=== PATIENT | male | born 1955 | race Caucasian/White ===

== ENCOUNTER 2020-01-27 15:12 | Outpatient (CLI) | payer OTHER, SELFPAY ==
[2020-01-27 16:38] LABS: Prostate Specific Antigen 14.1 ng/mL (< OR = 4.0)
== END 2020-01-27 15:13 | disposition home or self-care (01) ==
LOC: ANHLAB 15:14
PROVIDERS: PCP Internal Medicine; Visit Provider Internal Medicine
DX: R97.20 Elevated prostate specific antigen [PSA] (principal)
CPT/HCPCS: 36415; 84153

== ENCOUNTER 2020-05-30 11:58 | Outpatient (CLI) | payer OTHER, SELFPAY ==
[2020-05-30 13:14] LABS: Prostate Specific Antigen 16.6 ng/mL (< OR = 4.0)
== END 2020-05-30 11:59 | disposition home or self-care (01) ==
LOC: ANHLAB 12:01
PROVIDERS: PCP Internal Medicine
DX: C61 Malignant neoplasm of prostate (principal)
CPT/HCPCS: 36415; 84153

== ENCOUNTER 2020-07-12 08:17 | Outpatient (CLI) | payer OTHER, SELFPAY ==
[2020-07-12 08:44] LABS: Alanine Aminotransferase 24 U/L (4-50); Albumin Level 4.3 g/dL (3.5-5.1); Alkaline Phosphatase 69 U/L (38-126); Anion Gap 4 mmol/L (8-16); Aspartate Amino Transferase 37 U/L (17-59); Bilirubin,Total 0.5 mg/dL (0.2-1.3); Blood Urea Nitrogen 19 mg/dL (9-20); Calcium 9.5 mg/dL (8.4-10.2); Carbon Dioxide 29 mmol/L (22-30); Chloride 105 mmol/L (98-107); Cholesterol 137 mg/dL (0-200); Estimated Glomerular Filt Rate > 60; Glucose 97 mg/dL (75-110); HDL Direct 59 mg/dL; Potassium 5.1 mmol/L (3.4-5.0); Sodium 138 mmol/L (137-145); Triglycerides 66 mg/dL (<150)
[2020-07-12 08:55] LABS: LDL Cholesterol Direct 58 mg/dL
== END 2020-07-12 08:18 | disposition home or self-care (01) ==
PROVIDERS: PCP Internal Medicine; Visit Provider Internal Medicine
DX: E78.5 Hyperlipidemia, unspecified (principal); Z13.6 Encounter for screening for cardiovascular disorders
CPT/HCPCS: 36415; 80053; 80061

== ENCOUNTER 2020-07-17 04:44 | Emergency (ER) | payer OTHER, SELFPAY ==
--- NOTE | ~2020-07-17 | CT_ITS ---
EXAMINATION: CT abdomen pelvis wo con DATE: 07/17/2020 05:47 INDICATION: Left lower quadrant pain TECHNIQUE: Computed tomography (CT) of the abdomen and pelvis was performed without intravenous contr ast. The dose-length product (DLP) was 595.10 mGy-cm. Automated exposure control and iterative recons truction technique were employed. COMPARISON: 01/14/2018 FINDINGS: Minimal dependent atelectasis is present in the lung bases. The heart size is normal. There is a small sliding hiatal hernia. The liver, spleen, pancreas, gallbladder, and adrenal glands are n ormal. Cysts of the kidneys measure up to 2.6 cm on the left. There is a 4 mm stone in the proximal l eft ureter which causes mild hydronephrosis. Nonobstructing stones of the left kidney measure up to 4 mm. There are nonobstructing stones of the right kidney which measure up to 3 mm. There is calcified atherosclerosis of the aorta and many of the other arteries. No pathologically enlarged abdominal or pelvic lymph nodes are identified. There is no free intraperitoneal gas or evidence of bowel obstruc tion. There is severe lumbar spondylosis at L4-5. The appendix is normal. IMPRESSION: 1. 4 mm stone proximal left ureter causing mild hydronephrosis. 2. Bilateral nephrolithiasis. Reviewed, dictated and finalized at location [facility].
[2020-07-17 04:49] VITALS: PULSE 43; RESP 18; TEMP 36.8; O2SAT 99
--- NOTE | 2020-07-17 04:55 | ED.GENADULT ---
HPI - General Adult General Chief complaint: Urogenital-Male Stated complaint: kidney stones Time Seen by Provider: 07/17/20 04:49 History of Present Illness HPI narrative: Patient 65-year-old gentleman who presents the emergency department with chief complaint of left lower quadrant pain. The patient reports approximately 4 AM he woke up and started having pain in his left lower quadrant. Patient reports he got diaphoretic started having sharp pain in that location and states it feels just like whenever he has had the kidney stones before in the past. Patient reports he had some nausea denies flank pain at this time. The patient reports not improved by anything or is worsened by anything Related Data Home Medications Medication Instructions Recorded Confirmed tamsulosin 0.4 mg capsule 0.4 mg PO DAILY 02/02/20 02/02/20 Allergies Allergy/AdvReac Type Severity Reaction Status Date / Time No Known Allergies Allergy Unknown Verified 03/23/19 11:11 Review of Systems Review of Systems: Narrative: A 10 system review of systems was completed on the patient and is negative except for what is stated in the HPI. Nursing and ancillary documentation was reviewed. [facility] Past Medical History Medical History Screening for cardiovascular condition Surgical History Surgical History H/O prostate biopsy Family History Family History Mother Hypertension Social History Social History Smoking status: Current every day smoker Alcohol intake: never Comments History of kidney stones history of prostate cancer Exam Narrative: Exam Narrative: GENERAL: Well-appearing, well-nourished, and in no acute distress. HEAD: Normocephalic, atraumatic. EYES: PERRLA and EOMI. ENT: Nares clear, no rhinorrhea or epistaxis. Mucous membranes moist. NECK: Supple. CHEST: Clear to auscultation. No respiratory distress. HEART: Regular rate and rhythm. No murmur heard. Normal peripheral pulses. ABDOMEN: Soft, mild tenderness to palpation in the left lower quadrant, nondistended, normal active bowel sounds. EXTREMITIES: Normal range of motion. No edema. SKIN: Warm, dry, no rash. NEURO: No focal deficits. Alert and oriented x3. PSYCH: Normal mood and affect. Course Course Emergency Course: Patient CT scan showed evidence of a 4 mm left proximal ureteral calculi Vital Signs Vital signs: Vital Signs Temperature 36.8 C 07/17/20 04:49 Pulse Rate 43 L 07/17/20 04:49 Respiratory Rate 18 07/17/20 04:49 Pulse Oximetry 99 07/17/20 04:49 Temperature 36.8 C 07/17/20 04:49 Pulse Rate 51 L 07/17/20 06:13 Respiratory Rate 18 07/17/20 06:13 Blood Pressure 195/74 H 07/17/20 06:13 Pulse Oximetry 99 07/17/20 06:13 Medical Decision Making Vital Signs Vital Signs: Vital Signs Temperature 36.8 C 07/17/20 04:49 Pulse Rate 43 L 07/17/20 04:49 Respiratory Rate 18 07/17/20 04:49 Pulse Oximetry 99 07/17/20 04:49 Temperature 36.8 C 07/17/20 04:49 Pulse Rate 51 L 07/17/20 06:13 Respiratory Rate 18 07/17/20 06:13 Blood Pressure 195/74 H 07/17/20 06:13 Pulse Oximetry 99 07/17/20 06:13 Lab Data Result diagrams: 07/17/20 05:26 07/17/20 05:26 Labs: Lab Results 07/17/20 07/17/20 07/17/20 Range/Units 05:26 05:26 05:35 WBC 8.7 (4.5-10.0) K/mm3 RBC 4.47 L (4.6-6.20) M/mm3 Hgb 14.1 (14.0-18.0) g/dL Hct 43.7 (42.0-52.0) % MCV 97.8 (80-100) fl MCH 31.5 (26-34) pg MCHC 32.3 (32-36) g/dl RDW 13.2 (11.5-14.5) % Plt Count 248 (150-375) k/mm3 MPV 10.1 (7.4-10.4) fl Immature Gran % (Auto) 0.2 (0-0.5) % Neut % (Auto) 52.5 (45.5-73.1) % Lymph % (Auto) 34.1 (
[2020-07-17 05:00] VITALS: BP 190/101
[2020-07-17] MEDS: MORPHINE SULFATE (*CRX) 4 MG/ML INJ IV PUSH (05:15)
[2020-07-17] MEDS: SODIUM CHLORIDE 0.9% IV 1,000 ML 999 ML IV CONT (05:15)
[2020-07-17] MEDS: ONDANSETRON INJ 4 MG/2 ML VIAL IV PUSH (05:19)
--- NOTE | 2020-07-17 05:30 | PC.NURSE ---
pt states he isnt able to urinate, refused straight cath
[2020-07-17 05:46] LABS: Basophils Absolute Auto 0.1 K/mm3 (0.0-0.1); Basophils Percent Auto 0.7 % (0.2-1.2); Eosinophils Absolute Auto 0.5 K/mm3 (0-0.3); Eosinophils Percent Auto 5.2 % (0-4.4); Hematocrit 43.7 % (42.0-52.0); Hemoglobin 14.1 g/dL (14.0-18.0); Immature Granulocyte Absolute 0.02 K/mm3 (0.00-0.031); Immature Granulocyte Percent A 0.2 % (0-0.5); Lymphocytes Absolute Auto 2.95 K/mm3 (0.9-3.2); Lymphocytes Percent Auto 34.1 % (18.3-44.2); Mean Corpuscular HGB Conc 32.3 g/dl (32-36); Mean Corpuscular Hemoglobin 31.5 pg (26-34); Mean Corpuscular Volume 97.8 fl (80-100); Mean Platelet Volume 10.1 fl (7.4-10.4); Monocytes Absolute Auto 0.6 K/mm3 (0.1-0.6); Monocytes Percent Auto 7.3 % (2.6-8.5); Neutrophils Absolute Auto 4.5 K/mm3 (1.3-6.7); Neutrophils Percent Auto 52.5 % (45.5-73.1); Platelet Count Result 248 k/mm3 (150-375); Red Blood Count 4.47 M/mm3 (4.6-6.20); Red Cell Distribution Width 13.2 % (11.5-14.5); White Blood Count 8.7 K/mm3 (4.5-10.0)
[2020-07-17 05:47] LABS: Alanine Aminotransferase 20 U/L (4-50); Albumin Level 4.3 g/dL (3.5-5.1); Alkaline Phosphatase 61 U/L (38-126); Anion Gap 5 mmol/L (8-16); Aspartate Amino Transferase 27 U/L (17-59); Bilirubin,Total 0.2 mg/dL (0.2-1.3); Blood Urea Nitrogen 15 mg/dL (9-20); Calcium 9.1 mg/dL (8.4-10.2); Carbon Dioxide 32 mmol/L (22-30); Chloride 104 mmol/L (98-107); Estimated CRCL calculation 61 ml/min; Estimated Glomerular Filt Rate > 60; Glucose 116 mg/dL (75-110); Lipase 62 U/L (23-300); Potassium 4.1 mmol/L (3.4-5.0); Sodium 141 mmol/L (137-145)
--- NOTE | 2020-07-17 06:01 | PC.NURSE ---
pt reminded of needed urine sample. pt refused straight cath.
[2020-07-17 06:04] LABS: Lactic Acid Reflex 1.9 mmol/L (0.7-2.1)
[2020-07-17 06:13] VITALS: BP 195/74; PULSE 51; RESP 18; O2SAT 99
[2020-07-17 06:34] VITALS: BP 176/55; PULSE 55; RESP 20; O2SAT 93
[2020-07-17] MEDS: HYDROcodone/acetaminophen (*CRX) 5-325 MG TABLET 1 TAB PO (06:44)
[2020-07-17 06:45] VITALS: BP 176/55; PULSE 59; RESP 18; O2SAT 99
== END 2020-07-17 06:48 | disposition home or self-care (01) ==
PROVIDERS: Emergency Provider Emergency Medicine; PCP Internal Medicine
DX: N13.2 Hydronephrosis with renal and ureteral calculous obstruction (principal); Z87.442 Personal history of urinary calculi; F17.200 Nicotine dependence, unspecified, uncomplicated
CPT/HCPCS: 36415; 74176; 80053; 83605; 83690; 85025; 96361; 96374; 96375; 99284; A9270; J2270; J2405; J7030

== ENCOUNTER 2020-08-19 12:20 | Outpatient (CLI) | payer OTHER, SELFPAY ==
--- NOTE | ~2020-08-19 | US_ITS ---
EXAMINATION: US carotid duplex BI DATE: 08/19/2020 12:54 INDICATION: Left carotid bruit. TECHNIQUE: Grayscale, color Doppler, and pulsed Doppler images of the cervical carotid arteries were obtained. The degree of vessel stenosis is placed in one of the following categories: normal, <50%, 5 0-69%, >=70% but less than near-occlusion, near-occlusion, or total occlusion. Note that percent sten osis relative to normal distal artery lumen diameter is indirectly measured from velocity measurement s as described by Brain, et al. Radiology 2003; 229:340-346. COMPARISON: Ultrasound 08/01/2017 FINDINGS: RIGHT: The right common carotid artery (CCA) peak systolic velocity (PSV) is 117 cm/s. The right internal ca rotid artery (ICA) PSV is 118 cm/s. The right ICA end-diastolic velocity (EDV) is 29 cm/s. The right ICA/CCA PSV ratio is 1.0. Grayscale and color Doppler images yield an estimate of <50% diameter reduc tion from plaque in the ICA. There is antegrade flow in the right vertebral artery. LEFT: The left CCA PSV is 119 cm/s. The left ICA PSV is 95 cm/s. The left ICA EDV is 26 cm/s. The left ICA/ CCA PSV ratio is 0.8. Grayscale and color Doppler images yield an estimate of <50% diameter reduction from plaque in the ICA. There is antegrade flow in the left vertebral artery. IMPRESSION: 1. <50% stenosis in the right internal carotid artery. 2. <50% stenosis in the left internal carotid artery. Reviewed, dictated and finalized at location [facility].
== END 2020-08-19 12:21 | disposition home or self-care (01) ==
PROVIDERS: PCP Internal Medicine; Visit Provider Nurse Practitioner
DX: R09.89 Other specified symptoms and signs involving the circulatory and respiratory systems (principal); I65.23 Occlusion and stenosis of bilateral carotid arteries
CPT/HCPCS: 93880

== ENCOUNTER 2020-08-24 13:56 | Outpatient (CLI) | payer OTHER, SELFPAY ==
[2020-08-24 15:16] LABS: Prostate Specific Antigen 14.5 ng/mL (< OR = 4.0)
== END 2020-08-24 13:57 | disposition home or self-care (01) ==
PROVIDERS: PCP Internal Medicine; Visit Provider Nurse Practitioner
DX: C61 Malignant neoplasm of prostate (principal)
CPT/HCPCS: 36415; 84153

== ENCOUNTER 2021-02-17 12:53 | Outpatient (CLI) | payer OTHER, SELFPAY ==
[2021-02-17 13:40] LABS: Alanine Aminotransferase 33 U/L (4-50); Albumin Level 4.3 g/dL (3.5-5.1); Alkaline Phosphatase 60 U/L (38-126); Anion Gap 3 mmol/L (8-16); Aspartate Amino Transferase 36 U/L (17-59); Bilirubin,Total 0.3 mg/dL (0.2-1.3); Blood Urea Nitrogen 11 mg/dL (9-20); Calcium 9.2 mg/dL (8.4-10.2); Carbon Dioxide 33 mmol/L (22-30); Chloride 104 mmol/L (98-107); Cholesterol 153 mg/dL (0-200); Estimated Glomerular Filt Rate > 60; Glucose 96 mg/dL (65-110); HDL Direct 62 mg/dL; Potassium 5.5 mmol/L (3.4-5.0); Sodium 140 mmol/L (137-145); Triglycerides 139 mg/dL (<150)
[2021-02-17 13:51] LABS: LDL Cholesterol Direct 60 mg/dL
== END 2021-02-17 12:54 | disposition home or self-care (01) ==
LOC: ANHLAB 12:54
PROVIDERS: PCP Internal Medicine; Visit Provider Nurse Practitioner
DX: E78.5 Hyperlipidemia, unspecified (principal)
CPT/HCPCS: 36415; 80053; 80061

== ENCOUNTER 2021-04-20 10:02 | Outpatient (CLI) | payer OTHER, SELFPAY ==
[2021-04-20 11:28] LABS: Prostate Specific Antigen < 0.1 ng/mL (< OR = 4.0)
== END 2021-04-20 10:03 | disposition home or self-care (01) ==
LOC: ANHLAB 10:06
PROVIDERS: PCP Internal Medicine
DX: C61 Malignant neoplasm of prostate (principal)
CPT/HCPCS: 36415; 84153

== ENCOUNTER 2021-07-03 19:38 | Emergency (ER) | payer MEDICARE, MEDICAID, SELFPAY ==
--- NOTE | ~2021-07-03 | CT_ITS ---
EXAMINATION: CT brain wo con DATE: 07/03/2021 20:59 INDICATION: Headache TECHNIQUE: Computed tomography (CT) of the head was performed without intravenous contrast. The mA wa s adjusted according to patient size. Iterative reconstruction technique was employed. Exam dose: 60 5.33 mGy-cm total exam DLP. COMPARISON: None FINDINGS: There are vertebral artery and bilateral carotid siphon internal carotid artery calcificati on. There is nonspecific diminished attenuation of the cerebral white matter, likely due to chronic s mall vessel ischemic changes. No intracranial mass lesion or hemorrhage or cerebrovascular accident. No midline shift or mass effec t. Ventricular size is within normal range. No subdural or epidural hematoma is detected. No orbital mass lesion. Included mastoid air cells and paranasal sinuses are normally developed and aerated. No fracture or bone destruction of the cranial vault. IMPRESSION: Cerebral atherosclerosis and chronic small vessel ischemic changes of the cerebral white matter No acute intracranial finding Reviewed, dictated and finalized at [facility]. Reviewed, dictated and finalized at location [facility].
[2021-07-03 19:44] VITALS: BP 128/60; PULSE 64; RESP 18; TEMP 36.8; O2SAT 100
--- NOTE | 2021-07-03 21:47 | ED.EAR ---
HPI - Ear Problem General Chief complaint: Ear Stated complaint: ear problems Time Seen by Provider: 07/03/21 20:31 Source: RN notes reviewed History of Present Illness HPI Narrative: Patient presents emergency department from home for abnormal sounds left ear. Patient states for the past year as he is heard a dripping sound in his left ear. He describes a sound is a drip, drip drip . He denies any ear pain he denies any headaches fevers or chills he does note that he had rhinorrhea earlier today denies any sore throat cough or shortness of breath Related Data Home Medications Medication Instructions Recorded Confirmed tamsulosin 0.4 mg capsule 0.4 mg PO DAILY 02/02/20 02/21/21 Allergies Allergy/AdvReac Type Severity Reaction Status Date / Time No Known Allergies Allergy Unknown Verified 02/21/21 11:02 Review of Systems Review of Systems: Gen.: Denies fevers or chills ENT: See HPI Respiratory: Denies shortness of breath or cough CV: Denies chest pain or palpitations GI: Denies abdominal pain nausea, emesis or diarrhea Musculoskeletal: Denies back pain or muscle pain Neuro: Denies numbness, tingling, weakness or focal weakness Skin: Denies rash Except as documented, all other systems reviewed and negative PMFSH Past Medical History Medical History Screening for cardiovascular condition Surgical History Surgical History H/O prostate biopsy Family History Family History Mother Hypertension Social History Social History Smoking packs per day: 1.5 Smoking cigarettes per day: 30.0 Years smoked: 40 Smoking pack-years: 60.00 Smoking status: Current every day smoker Tobacco type: cigarettes Alcohol intake: never Substance use: never Substance use type: does not use Exam Narrative: APPEARANCE: No acute distress, nontoxic, resting in bed EYES: EOMI HEENT: Normocephalic, atraumatic, right TM is normal in appearance left TM has no erythema mild effusion bilateral turbinates boggy no erythema exudate posterior pharynx RESPIRATORY: No respiratory distress Clear to auscultation bilaterally with no rhonchi wheezing or rales. CARDIOVASCULAR: Regular rate and rhythm without murmurs rubs or gallops. ABDOMINAL: Soft, nontender, nondistended, no rebound or guarding MUSCULOSKELETAl: Moves all extremities. No clubbing, cyanosis or edema. NEURO: Awake and alert x 4. Following commands, speech normal, no focal deficits SKIN:: Warm, dry. No rashes lesions or abrasions PSYCHIATRIC: Normal affect/mood, Course Course Emergency Course: Discussed with patient results of workup and diagnosis. Discussed need for follow-up with primary care, proper use of medication, and reasons to return to the emergency department. Patient understands and agrees to current treatment plan Vital Signs Vital signs: Vital Signs Temperature 98.2 F 07/03/21 19:44 Pulse Rate 64 07/03/21 19:44 Respiratory Rate 18 07/03/21 19:44 Blood Pressure 128/60 07/03/21 19:44 Pulse Oximetry 100 07/03/21 19:44 Temperature 98.2 F 07/03/21 19:44 Pulse Rate 64 07/03/21 19:44 Respiratory Rate 18 07/03/21 19:44 Blood Pressure 128/60 07/03/21 19:44 Pulse Oximetry 100 07/03/21 19:44 Medical Decision Making MDM Narrative Medical decision making narrative: Patient with dripping sound in left ear blood pressure is within normal limits small effusion suspect secondary to effusion will start on Flonase and guaifenesin with follow-up as ENT Vital Signs Vital Signs: Vital Signs Temperature 98.2 F 07/03/21 19:44 Pulse Rate 64 07/03/21 19:44 Respiratory Rate 18 07/03/21 19:44 Blood Pressure 128/60 07/03/21 19:44 Pulse Oximetry 100 07/03/21 19:44 Temperature 98.2 F 07/03/21
[2021-07-03 22:05] VITALS: BP 146/86; PULSE 78; RESP 16; O2SAT 98
== END 2021-07-03 22:06 | disposition home or self-care (01) ==
PROVIDERS: Emergency Provider Emergency Medicine; PCP Internal Medicine
DX: H93.8X2 Other specified disorders of left ear (principal); F17.210 Nicotine dependence, cigarettes, uncomplicated; I67.2 Cerebral atherosclerosis
CPT/HCPCS: 70450; 99283; 99284

== ENCOUNTER 2021-12-01 10:12 | Emergency (ER) | payer MEDICARE, SELFPAY ==
--- NOTE | 2021-12-01 10:19 | ED.URI ---
HPI - URI/Sore Throat General Chief Complaint: Upper Respiratory Infection Stated Complaint: Congestion Time Seen by Provider: 12/01/21 10:28 Source: patient and RN notes reviewed Mode of arrival: ambulatory Limitations: no limitations History of Present Illness HPI Narrative: 66-year-old male presents with concern for nasal congestion, productive cough, shortness of breath that started on Saturday. He reports he is a smoker. He reports feeling raw at the back of his nose. He denies any known sick contacts. He is vaccinated for COVID. He denies chest pain, sweats. He denies any iios-ewj-wchfnaw medications MD elicited complaint: cough and nasal congestion Related Data Home Medications Medication Instructions Recorded Confirmed tamsulosin 0.4 mg capsule 0.4 mg PO DAILY 02/02/20 08/31/21 Allergies Allergy/AdvReac Type Severity Reaction Status Date / Time No Known Allergies Allergy Unknown Verified 12/01/21 10:18 Review of Systems Review of Systems: CONSTITUTIONAL: Reports malaise. Denies chills, sweats, or fever. EYES: Denies visual changes, redness, or discharge. ENT: Reports rhinorrhea, congestion. Denies sinus pain, otalgia and sore throat. CARDIOVASCULAR: Denies chest pain, palpitations, or edema. RESPIRATORY: Reports productive cough. Reports occasional dyspnea. GASTROINTESTINAL: Denies abdominal pain, nausea, vomiting, diarrhea SKIN: Denies rash or itching. MUSCULOSKELETAL: Denies myalgia. NEUROLOGIC: Denies headache. All systems reviewed & are unremarkable except as noted in HPI and below PMFSH Past Medical History Medical History Screening for cardiovascular condition Surgical History Surgical History H/O prostate biopsy Family History Family History Mother Hypertension Social History Social History Smoking packs per day: 1.5 Smoking cigarettes per day: 30.0 Years smoked: 40 Smoking pack-years: 60.00 Smoking status: Current every day smoker Tobacco type: cigarettes Alcohol intake: never Substance use: never Substance use type: does not use Comments At time of signature, agree with nursing past medical, surgical, social and family history. There is no relevant family history pertinent to the presenting complaint Exam Narrative: GENERAL: Nontoxic-appearing and in no acute distress. HEAD: Normocephalic EYES: PERRLA, conjunctivae clear ENT: Nares clear, clear discharge. Mucous membranes moist. TM pearly johnston with dull light reflex bilaterally; no tragal tenderness. Oropharynx not erythematous without lesions. Tonsils not enlarged and without exudate, no drooling, no hoarseness, no trismus, uvula midline. NECK: Supple. No lymphadenopathy CHEST: Scattered wheeze, otherwise clear to auscultation, breath sounds equal. No rhonchi, rales, or stridor. No respiratory distress, speaks in full sentences. HEART: Regular rate and rhythm. No murmur heard. SKIN: Warm, dry, no rash. NEURO: Alert and oriented x3. PSYCH: Normal mood and affect Course Course Emergency Course: Patient is aware of diagnosis, understands and agrees to treatment plan. Anticipatory guidance given. Patient agrees to follow-up as directed and is aware of reasons to seek care at the emergency department. Portions of this record may have been created with voice recognition software Level of Care: Express Care Visit Vital Signs Vital signs: Reviewed. MDM - URI/Sore Throat MDM Narrative Medical decision making narrative: Differential diagnosis considered: Bowden virus, strep pharyngitis, allergic rhinitis, upper respiratory tract infection, sinusitis, rhinosinusitis, nasopharyngitis. viral pharyngitis, otitis media, otitis externa, pneumonia, bronchitis, viral cough syndrome, viral syndrome, and
[2021-12-01 10:21] VITALS: BP 172/70; PULSE 58; RESP 16; TEMP 35.9; O2SAT 100
== END 2021-12-01 10:39 | disposition home or self-care (01) ==
PROVIDERS: Emergency Provider Nurse Practitioner; PCP Internal Medicine
DX: J06.9 Acute upper respiratory infection, unspecified (principal); R05.9 Cough, unspecified; F17.210 Nicotine dependence, cigarettes, uncomplicated
CPT/HCPCS: 99213; G0463

== ENCOUNTER 2021-12-03 12:50 | Emergency (ER) | payer MEDICARE, SELFPAY ==
--- NOTE | 2021-12-03 12:56 | ED.URI ---
HPI - URI/Sore Throat General Chief Complaint: Upper Respiratory Infection Stated Complaint: Covid test Time Seen by Provider: 12/03/21 12:56 Source: patient Mode of arrival: ambulatory Limitations: no limitations History of Present Illness HPI Narrative: Mr. Hurtado is a 66-year-old male patient presenting to the clinic today with complaints of an upper respiratory infection. He reports that he was seen 2 days ago and given prescription for azithromycin, prednisone, and a butyryl inhaler. He reports his daughter just tested positive for COVID and he is concerned that he has had COVID as well. Symptoms of been ongoing for over 1 week. He reports he has had some fever and chills as well MD elicited complaint: sore throat and nasal congestion Related Data Home Medications Medication Instructions Recorded Confirmed tamsulosin 0.4 mg capsule 0.4 mg PO DAILY 02/02/20 08/31/21 Allergies Allergy/AdvReac Type Severity Reaction Status Date / Time No Known Allergies Allergy Unknown Verified 12/01/21 10:18 Review of Systems Review of Systems: Pertinent positives per HPI. Patient denies any rash, headache, visual changes, dizziness, chest pain, palpitations, nausea, vomiting, diarrhea, constipation, abdominal pain, or any urinary issues. PMFSH Past Medical History Medical History Screening for cardiovascular condition Surgical History Surgical History H/O prostate biopsy Family History Family History Mother Hypertension Social History Social History Smoking packs per day: 1.5 Smoking cigarettes per day: 30.0 Years smoked: 40 Smoking pack-years: 60.00 Smoking status: Current every day smoker Tobacco type: cigarettes Alcohol intake: never Substance use: never Substance use type: does not use Comments At the time of my signature, I reviewed and agree with the nursing past medical, surgical, social, and family history. There is no relevant family history pertinent to the patient complaint. Exam Narrative: General: Well-developed, well nourished, in no apparent distress Head: Normocephalic, atraumatic Eyes: Pupils equally round and reactive to light bilaterally, EOM intact, sclera and conjunctive clear, no discharge, lids normal Ears: TMs intact and clear, ear canals clear, no drainage, grossly hearing normal. Nose: Nares patent, no discharge, no inflammation, no sinus tenderness. Mouth: Oral pharynx without lesions or masses, good dentition, MMM. Neck: Supple, trachea midline, no enlargement of anterior or posterior cervical nodes, no thyroid masses or goiter palpable. Cardio: Regular rate and rhythm, s1 and s2 normal, no murmur appreciated. Resp: Lung sounds diminished in the bases otherwise clear, no rhonchi, rales, wheezing or rubs Course Course Emergency Course: Portions of this record may have been created with voice recognition software. Level of Care: Express Care Visit Vital Signs Vital signs: Vital Signs Temperature 36.4 C L 12/03/21 12:59 Pulse Rate 66 12/03/21 12:59 Respiratory Rate 16 12/03/21 12:59 Blood Pressure 154/66 H 12/03/21 12:59 Pulse Oximetry 100 12/03/21 12:59 Oxygen Delivery Room Air 12/03/21 12:59 Temperature 36.4 C L 12/03/21 12:59 Pulse Rate 66 12/03/21 12:59 Respiratory Rate 16 12/03/21 12:59 Blood Pressure 154/66 H 12/03/21 12:59 Pulse Oximetry 100 12/03/21 12:59 Oxygen Delivery Room Air 12/03/21 12:59 Vital signs reviewed MDM - URI/Sore Throat MDM Narrative Medical decision making narrative: At the time of visit patient is resting comfortably on the exam table. Patient is wanting COVID tested. Symptoms have been going on for a week. I suspect the patient has acu
[2021-12-03 12:59] VITALS: BP 154/66; PULSE 66; RESP 16; TEMP 36.4; O2SAT 100
== END 2021-12-03 13:39 | disposition home or self-care (01) ==
PROVIDERS: Emergency Provider Nurse Practitioner Family; PCP Internal Medicine
DX: J40 Bronchitis, not specified as acute or chronic (principal); Z20.822 Contact with and (suspected) exposure to COVID-19; F17.210 Nicotine dependence, cigarettes, uncomplicated
CPT/HCPCS: 87426; 99213; C9803; G0463

== ENCOUNTER 2021-12-08 13:21 | Outpatient (CLI) | payer MEDICARE, SELFPAY ==
[2021-12-08 14:01] LABS: Alanine Aminotransferase 15 U/L (6-50); Albumin Level 4.2 g/dL (3.5-5.1); Alkaline Phosphatase 58 U/L (38-126); Anion Gap 5 mmol/L (8-16); Aspartate Amino Transferase 21 U/L (17-59); Bilirubin,Total 0.3 mg/dL (0.2-1.3); Blood Urea Nitrogen 16 mg/dL (9-20); Carbon Dioxide 33 mmol/L (22-30); Chloride 102 mmol/L (98-107); Cholesterol 107 mg/dL (0-200); Estimated Glomerular Filt Rate > 60; Glucose 107 mg/dL (65-110); HDL Direct 50 mg/dL; Potassium 5.4 mmol/L (3.4-5.0); Sodium 140 mmol/L (137-145); Triglycerides 74 mg/dL (<150)
[2021-12-08 14:12] LABS: LDL Cholesterol Direct 35 mg/dL
[2021-12-08 14:32] LABS: Prostate Specific Antigen < 0.1 ng/mL (< OR = 4.0)
== END 2021-12-08 13:22 | disposition home or self-care (01) ==
PROVIDERS: PCP Internal Medicine; Visit Provider Nurse Practitioner
DX: E78.5 Hyperlipidemia, unspecified (principal); C61 Malignant neoplasm of prostate
CPT/HCPCS: 36415; 80053; 80061; 84153

== ENCOUNTER 2022-03-30 00:49 | Day surgery (SDC) | payer MEDICARE, SELFPAY ==
[2022-03-22 10:02] VITALS: BMI 25.4
[2022-03-30 06:12] VITALS: BP 130/67; PULSE 56; RESP 18; TEMP 35.9; O2SAT 99; BMI 24.5
[2022-03-30] MEDS: LACTATED RINGERS 1,000 ML 150 ML IV CONT (06:34)
--- NOTE | 2022-03-30 07:13 | P.PNAN_ITS ---
Anes - Initial Pre Proc Eval Procedure: Operation Date: 03/30/22 07:30 Proposed Procedures p Screening Colonoscopy - Hung Ferguson MD Date/Time: 03/30/22 07:13 Surgeon: Hung Ferguson MD Pre Op Diagnosis: Hx of Colon polyps Patient Data Age: 66 Gender: M Height: 1.83 m Weight: 82.1 kg Last Vital Signs Temp 96.7 F L 03/30/22 06:12 Pulse 56 L 03/30/22 06:12 Resp 18 03/30/22 06:12 BP 130/67 03/30/22 06:12 Pulse Ox 99 03/30/22 06:12 O2 Del Method Room Air 03/30/22 06:12 Allergies Allergy/AdvReac Type Severity Reaction Status Date / Time No Known Allergies Allergy Unknown Verified 03/30/22 06:19 Home Medications Medication Instructions Recorded Confirmed Type tamsulosin 0.4 mg capsule 0.4 mg PO DAILY 02/02/20 03/30/22 History inhalat.spacing dev,large mask #1 ea 12/01/21 03/30/22 Rx (BreatheRite Spacer and Mask, Adult) atorvastatin 40 mg tablet See Rx Instructions .Route 01/08/22 03/30/22 Rx .COMPLEX #90 tabs albuterol sulfate 90 mcg/actuation 2 puff inhalation QID PRN 03/09/22 03/30/22 Rx aerosol inhaler shortness of breath or wheezing #8.5 grams fluticasone propionate 50 1 spray intranasal DAILY #16 grams 03/09/22 03/30/22 Rx mcg/actuation nasal spray,suspension (Flonase Allergy Relief) alprazolam 0.5 mg tablet (Xanax) 0.5 mg PO TID PRN anxiety #60 tabs 03/10/22 03/30/22 Rx Patient hx anesthesia problems: none Family hx anesthesia problems: none Results Review: All pre-operative results and documents have been reviewed as part of the pre- operative evaluation. [facility] Past Medical History Medical History (Updated 12/19/21 @ 06:47 by Romel Chakraborty DO) Screening for cardiovascular condition Surgical History Surgical History H/O prostate biopsy Family History Family History Mother Hypertension Social History Social History Smoking packs per day: 1.5 Smoking cigarettes per day: 30.0 Years smoked: 40 Smoking pack-years: 60.00 Smoking status: Current every day smoker Tobacco type: cigarettes Alcohol intake: never Substance use: current Substance use type: marijuana Other substance usage details: Medical Card Living arrangements: with family Spiritual care concerns: No Anes - Eval Final PreProcedure Day of Procedure 03/30/22 07:13 Patient weight: normal Heart: regular rate and rhythm Lungs: clear to auscultation Airway: Mallampati scale class II Neurological: alert and oriented Last oral intake: >/= 8 hours ASA classification: III Emergent: no Anesthetic plan: proceed Anesthesia type and monitoring: general GIVS and standard monitoring Results Review: All pre-operative results and documents have been reviewed as part of the pre- operative evaluation. Informed Consent: The patient's anesthetic plan and its attendant risks and benefits were discussed with the patient/family/POA. Questions were solicited and answers provided to the satisfaction of the patient/family/POA.
--- NOTE | 2022-03-30 07:33 | PM.HPGS ---
History of Present Illness History of Present Illness Consent: Risks, benefits, and alternatives have been discussed and questions answered. Patient agrees to proceed with procedure. Chief complaint: Hx of Colon polyps Narrative: Sundeep Hurtado is a 66 year old male with colon polyps 3 years ago Review of Systems Constitutional: Constitutional: Denies headache(s) and Denies weakness Eyes: Eyes: Denies blurry vision ENT: Reports Normal hearing present, Denies headache(s) and Denies neck pain Cardiovascular: Cardiovascular: Denies chest pain and Denies dyspnea Respiratory: Respiratory: Denies dyspnea Gastrointestinal: Gastrointestinal: Reports no additional gastrointestinal complaints Genitourinary: Genitourinary: Denies dysuria Musculoskeletal: Musculoskeletal: Denies neck pain Integumentary/Breasts: Skin/Breast: Denies dry skin Neurologic: Reports Normal hearing present, Denies headache(s) and Denies weakness Psychiatric: Psychiatric: Denies anxiety Endocrine: Endocrine: Denies change in body appearance Hematologic/Lymphatic: Hematologic/Lymphatic: Denies easy bleeding Allergic/Immunologic: Allergic/Immunologic: Denies urticaria PMFSH Past Medical History Medical History (Updated 03/30/22 @ 07:33 by Hung Ferguson MD) Colon polyp Screening for cardiovascular condition Surgical History Surgical History H/O prostate biopsy Family History Family History Mother Hypertension Social History Social History Smoking packs per day: 1.5 Smoking cigarettes per day: 30.0 Years smoked: 40 Smoking pack-years: 60.00 Smoking status: Current every day smoker Tobacco type: cigarettes Alcohol intake: never Substance use: current Substance use type: marijuana Other substance usage details: Medical Card Living arrangements: with family Spiritual care concerns: No Meds Home Medications and Allergies Home Medications Medication Instructions Recorded Confirmed Type tamsulosin 0.4 mg capsule 0.4 mg PO DAILY 02/02/20 03/30/22 History inhalat.spacing dev,large mask #1 ea 12/01/21 03/30/22 Rx (BreatheRite Spacer and Mask, Adult) atorvastatin 40 mg tablet See Rx Instructions .Route 01/08/22 03/30/22 Rx .COMPLEX #90 tabs albuterol sulfate 90 mcg/actuation 2 puff inhalation QID PRN 03/09/22 03/30/22 Rx aerosol inhaler shortness of breath or wheezing #8.5 grams fluticasone propionate 50 1 spray intranasal DAILY #16 grams 03/09/22 03/30/22 Rx mcg/actuation nasal spray,suspension (Flonase Allergy Relief) alprazolam 0.5 mg tablet (Xanax) 0.5 mg PO TID PRN anxiety #60 tabs 03/10/22 03/30/22 Rx Allergies Allergy/AdvReac Type Severity Reaction Status Date / Time No Known Allergies Allergy Unknown Verified 03/30/22 06:19 Vital Signs Vital Signs - 24 hr 03/30/22 06:12 Temperature 96.7 F L Pulse Rate 56 L Respiratory Rate 18 Blood Pressure 130/67 Pulse Oximetry 99 Oxygen Delivery Room Air Exam Const: General: comfortable and no acute distress HENMT: Face/Nose/Sinus: Normal nares present Eyes: General: appearance normal, both eyes and all related structures Neck: Neck: no JVD Resp: Auscultation: clear to auscultation bilaterally Cardio: Rate: regular rate Rhythm: regular rhythm GI: Inspection: non-distended GI Palp: Yes Soft to palpation Skin: General skin exam: normal color Neuro: General: gait normal Speech: normal speech Extrem: General: normal to inspection Psych: Mental Status: mental status grossly normal Assessment and Plan Assessment and plan (1) Colon polyp: Code(s): K63.5 - Polyp of colon Status: Acute Assessment and Plan: colonoscopy
[2022-03-30 07:53] VITALS: BP 98/52; PULSE 57; RESP 16; O2SAT 99
[2022-03-30 08:03] VITALS: BP 125/69; PULSE 58; RESP 19; O2SAT 100
[2022-03-30 08:13] VITALS: BP 153/83; PULSE 56; RESP 20; O2SAT 100
== END 2022-03-30 08:19 | disposition home or self-care (01) ==
PROVIDERS: PCP Internal Medicine; Visit Provider Internal Medicine Gastroenterology
PROC: 0DJD8ZZ Inspection of Lower Intestinal Tract, Via Natural or Artificial Opening Endoscopic (ICD-10-PCS; CPT 45378; principal; 2022-03-30 07:30)
DX: Z12.11 Encounter for screening for malignant neoplasm of colon (principal); D12.2 Benign neoplasm of ascending colon; D12.4 Benign neoplasm of descending colon; K64.8 Other hemorrhoids; K57.30 Diverticulosis of large intestine without perforation or abscess without bleeding; F17.210 Nicotine dependence, cigarettes, uncomplicated
CPT/HCPCS: 45385; 88305; J2704; J7120

== ENCOUNTER 2022-04-18 07:50 | Outpatient (CLI) | payer MEDICARE, MEDICAID, SELFPAY ==
--- NOTE | 2022-04-18 | ECHO_ITS ---
Patient Info Name: Sundeep Hurtado Age: 66 years : 1955 Gender: Male Ht: 72 in Wt: 176 lbs BSA: 2.02 m2 HR: 62 bpm BP: 131 / 64 mmHg Heart Rhythm: Sinus Rhythm, Bradycardia Exam Date: 04/18/2022 8:29 AM Exam Location: [facility] Patient Status: Outpatient Admit Date: 04/18/2022 Staff Ordering Physician: Marcelino Hope MD Paint Tester: Ilan Allen, MESERET, RT Attending Provider: Marcelino Hope MD Referring Physician: Herminia MULLER; Exam Type: CA echo doppler color flow Study Info Indications R01.1 - Cardiac murmur, unspecified Complete two-dimensional, color flow and Doppler transthoracic echocardiogram is performed. Strain analysis performed. Summary 1. Complete two-dimensional, color flow and Doppler transthoracic echocardiogram is performed. 2. Left ventricular systolic function is normal, estimated at 60-65%. 3. There is mildly increased left ventricular wall thickness. 4. Right ventricular systolic function is normal. 5. The aortic valve is not well visualized. 6. There is moderate to severe aortic valve stenosis with a peak velocity of 355 cm/s, mean gradient of 27 mmHg, and aortic valve area of 0.9 cm2. 7. There is mild aortic valve regurgitation. 8. There is severe aortic valve calcification. 9. The mitral valve annulus is mildly calcified. 10. The aortic root size at the sinus of Valsalva is mildly dilated. Left Ventricle Left ventricular chamber dimension is normal. Left ventricular systolic function is normal, estimated at 60-65%. There is mildly increased left ventricular wall thickness. Global longitudinal strain is abnormal at -19 %. Right Ventricle Right ventricular chamber dimension is normal. Right ventricular systolic function is normal. Left Atria Left atrial chamber dimension is normal. Right Atria Right atrial chamber dimension is normal. Atrial Septum Intact interatrial septum visualized by color flow imaging. Aortic Valve The aortic valve is not well visualized. There is moderate to severe aortic valve stenosis with a peak velocity of 355 cm/s, mean gradient of 27 mmHg, and aortic valve area of 0.9 cm2. There is mild aortic valve regurgitation. There is severe aortic valve calcification. Mitral Valve There is no mitral valve stenosis. There is trace mitral valve regurgitation. The mitral valve annulus is mildly calcified. Tricuspid Valve There is trace tricuspid valve regurgitation. Pericardium/Pleural There is no pericardial effusion. Inferior Vena Cava Normal inferior vena cava with >50% collapse upon inspiration consistent with normal right atrial pressure. Aorta The aortic root size at the sinus of Valsalva is mildly dilated. Left Ventricular Outflow Tract Name Value Normal LVOT 2D LVOT Diameter 2.0 cm LVOT Doppler LVOT Peak Gradient 3 mmHg LVOT Mean Gradient 1 mmHg LVOT VTI 23 cm LVOT VTI/AV VTI Ratio 0.3 LVOT Stroke Volume 75 ml LVOT CO
[2022-04-18 10:31] LABS: Prostate Specific Antigen 0.3 ng/mL (< OR = 4.0)
== END 2022-04-18 07:51 | disposition home or self-care (01) ==
PROVIDERS: Internal Medicine; PCP Internal Medicine; Visit Provider Internal Medicine
DX: R01.1 Cardiac murmur, unspecified (principal); C61 Malignant neoplasm of prostate
CPT/HCPCS: 36415; 84153; 93306

== ENCOUNTER 2022-10-08 15:23 | Outpatient (CLI) | payer MEDICARE, MEDICAID, SELFPAY ==
[2022-10-08 15:43] LABS: Basophils Percent Auto 0.6 % (0.2-1.2); Eosinophils Absolute Auto 0.2 K/mm3 (0-0.3); Eosinophils Percent Auto 2.8 % (0-4.4); Hematocrit 38.7 % (42.0-52.0); Hemoglobin 13.7 g/dL (14.0-18.0); Immature Granulocyte Absolute 0.03 K/mm3 (0.00-0.031); Immature Granulocyte Percent A 0.4 % (0-0.5); Lymphocytes Absolute Auto 1.43 K/mm3 (0.9-3.2); Lymphocytes Percent Auto 20.9 % (18.3-44.2); Mean Corpuscular HGB Conc 35.4 g/dl (32-36); Mean Corpuscular Hemoglobin 32.7 pg (26-34); Mean Corpuscular Volume 92.4 fl (80-100); Mean Platelet Volume 9.1 fl (7.4-10.4); Monocytes Absolute Auto 0.4 K/mm3 (0.1-0.6); Monocytes Percent Auto 5.7 % (2.6-8.5); Neutrophils Absolute Auto 4.8 K/mm3 (1.3-6.7); Neutrophils Percent Auto 69.6 % (45.5-73.1); Platelet Count Result 238 k/mm3 (150-375); Red Blood Count 4.19 M/mm3 (4.6-6.20); Red Cell Distribution Width 13.2 % (11.5-14.5); White Blood Count 6.8 K/mm3 (4.5-10.0)
[2022-10-08 16:08] LABS: Alanine Aminotransferase 22 U/L (6-50); Albumin Level 4.2 g/dL (3.5-5.1); Alkaline Phosphatase 56 U/L (38-126); Anion Gap 1 mmol/L (8-16); Aspartate Amino Transferase 32 U/L (17-59); Bilirubin,Total 0.4 mg/dL (0.2-1.3); Blood Urea Nitrogen 16 mg/dL (9-20); Calcium 8.6 mg/dL (8.4-10.2); Carbon Dioxide 35 mmol/L (22-30); Chloride 101 mmol/L (98-107); Cholesterol 130 mg/dL (0-200); Estimated Glomerular Filt Rate > 60; Glucose 183 mg/dL (65-110); HDL Direct 56 mg/dL; Potassium 4.5 mmol/L (3.4-5.0); Sodium 137 mmol/L (137-145); Triglycerides 56 mg/dL (<150)
[2022-10-08 16:18] LABS: LDL Cholesterol Direct 62 mg/dL
[2022-10-08 16:38] LABS: Prostate Specific Antigen 0.3 ng/mL (< OR = 4.0)
[2022-10-08 16:52] LABS: Hemoglobin A1C 5.1 % (<5.7)
== END 2022-10-08 15:24 | disposition home or self-care (01) ==
LOC: ANHLAB 15:25
PROVIDERS: PCP Internal Medicine; Visit Provider Nurse Practitioner Family
DX: C61 Malignant neoplasm of prostate (principal); I10 Essential (primary) hypertension; Z86.72 Personal history of thrombophlebitis; E78.5 Hyperlipidemia, unspecified
CPT/HCPCS: 36415; 80053; 80061; 83036; 84153; 85025

== ENCOUNTER 2023-03-27 12:41 | Outpatient (CLI) | payer OTHER, SELFPAY ==
--- NOTE | 2023-03-27 12:48 | ECHO_ITS ---
Patient Info Name: Sundeep Hurtado Age: 67 years : 1955 Gender: Male Ht: 72 in Wt: 185 lbs BSA: 2.07 m2 HR: 78 bpm BP: 116 / 73 mmHg Heart Rhythm: Sinus Rhythm Technical Quality: Fair Exam Date: 03/27/2023 1:03 PM Exam Location: Echo Lab Patient Status: Outpatient Admit Date: 03/27/2023 Staff Ordering Physician: Gerardo Espinal DO Water Quality Technician: Inessa Medel RDCS Attending Provider: Gerardo Espinal DO Referring Physician: Teddy LARA; Exam Type: CA echo doppler color flow Study Info Indications I35.0 - Nonrheumatic aortic (valve) stenosis Complete two-dimensional, color flow and Doppler transthoracic echocardiogram is performed. Summary 1. Complete two-dimensional, color flow and Doppler transthoracic echocardiogram is performed. 2. Left ventricular chamber dimension is normal. 3. Left ventricular systolic function is normal, estimated at >70%. 4. The left ventricular diastolic function is grade I diastolic dysfunction. 5. E/e' 13 is mildly elevated. 6. Left atrial chamber dimension is mildly enlarged. 7. The aortic valve is not well visualized. Cannot determine number of aortic valve leaflets. 8. There is severe aortic valve sclerosis. 9. There is severe aortic valve stenosis with a peak velocity of 484 cm/s, mean gradient of 46 mmHg, and aortic valve area of 1.0 cm2. 10. There is trace aortic valve regurgitation. 11. There is trace mitral valve regurgitation. 12. There is trace tricuspid valve regurgitation. 13. No pulmonary hypertension, estimated pulmonary arterial systolic pressure is 28 mmHg. Left Ventricle E/e' 13 is mildly elevated. Left ventricular chamber dimension is normal. Left ventricular systolic function is normal, estimated at >70%. The left ventricular diastolic function is grade I diastolic dysfunction. Right Ventricle Right ventricular systolic function is normal and with normal TAPSE 2.5 cm. Right ventricular chamber dimension is normal. Left Atria Left atrial chamber dimension is mildly enlarged. Right Atria Right atrial chamber dimension is normal. Aortic Valve The aortic valve is not well visualized. Cannot determine number of aortic valve leaflets. There is severe aortic valve sclerosis. There is severe aortic valve stenosis with a peak velocity of 484 cm/s, mean gradient of 46 mmHg, and aortic valve area of 1.0 cm2. There is trace aortic valve regurgitation. Pulmonic Valve There is no pulmonic regurgitation. Mitral Valve There is no mitral valve stenosis. There is trace mitral valve regurgitation. Tricuspid Valve There is trace tricuspid valve regurgitation. No pulmonary hypertension, estimated pulmonary arterial systolic pressure is 28 mmHg. Pericardium/Pleural There is no pericardial effusion. Inferior Vena Cava Normal inferior vena cava with >50% collapse upon inspiration consistent with normal right atrial pressure, 5 mmHg. Aorta The aortic root size at the sinus of Valsalva is normal. Left Ventricular Outflow Tract Name Value Normal LVOT 2D LVOT Diameter 2.1 cm LVOT Doppler LVOT Peak Gradient 5 mmHg LVOT Mean Gradient 3 mmHg LVOT VTI 27 cm
== END 2023-03-27 12:42 | disposition home or self-care (01) ==
PROVIDERS: PCP Nurse Practitioner Family; Visit Provider Internal Medicine Cardiovascular Disease
DX: I35.0 Nonrheumatic aortic (valve) stenosis (principal); I35.8 Other nonrheumatic aortic valve disorders; I35.1 Nonrheumatic aortic (valve) insufficiency; I34.0 Nonrheumatic mitral (valve) insufficiency; I07.1 Rheumatic tricuspid insufficiency; R93.1 Abnormal findings on diagnostic imaging of heart and coronary circulation
CPT/HCPCS: 93306

== ENCOUNTER 2023-04-24 08:40 | Outpatient (CLI) | payer OTHER, SELFPAY ==
[2023-04-24 10:16] LABS: Prostate Specific Antigen 0.9 ng/mL (< OR = 4.0)
== END 2023-04-24 08:41 | disposition home or self-care (01) ==
PROVIDERS: PCP Nurse Practitioner Family; Visit Provider Nurse Practitioner Family
DX: Z12.5 Encounter for screening for malignant neoplasm of prostate (principal); C61 Malignant neoplasm of prostate
CPT/HCPCS: 36415; 84153; G0103

== ENCOUNTER 2023-08-30 15:35 | Outpatient (CLI) | payer OTHER, SELFPAY ==
[2023-08-30 17:29] LABS: Prostate Specific Antigen 0.9 ng/mL (< OR = 4.0)
[2023-09-02 18:14] LABS: Testosterone Total 417 ng/dL (250-1100)
== END 2023-08-30 15:36 | disposition home or self-care (01) ==
PROVIDERS: PCP Nurse Practitioner Family
DX: C61 Malignant neoplasm of prostate (principal)
CPT/HCPCS: 36415; 84153; 84403

== ENCOUNTER 2024-03-23 10:26 | Outpatient (CLI) | payer MEDICARE, SELFPAY ==
[2024-03-23 10:48] LABS: Basophils Absolute Auto 0.1 K/mm3 (0.0-0.1); Basophils Percent Auto 0.9 % (0.2-1.2); Eosinophils Absolute Auto 0.3 K/mm3 (0-0.3); Eosinophils Percent Auto 4.6 % (0-4.4); Hematocrit 35.5 % (42.0-52.0); Hemoglobin 11.6 g/dL (14.0-18.0); Immature Granulocyte Absolute 0.01 K/mm3 (0.00-0.031); Immature Granulocyte Percent A 0.2 % (0-0.5); Lymphocytes Absolute Auto 1.15 K/mm3 (0.9-3.2); Lymphocytes Percent Auto 19.8 % (18.3-44.2); Mean Corpuscular HGB Conc 32.7 g/dl (32-36); Mean Corpuscular Hemoglobin 32.6 pg (26-34); Mean Corpuscular Volume 99.7 fl (80-100); Mean Platelet Volume 9.6 fl (7.4-10.4); Monocytes Absolute Auto 0.6 K/mm3 (0.1-0.6); Monocytes Percent Auto 10.8 % (2.6-8.5); Neutrophils Absolute Auto 3.7 K/mm3 (1.3-6.7); Neutrophils Percent Auto 63.7 % (45.5-73.1); Platelet Count Result 224 k/mm3 (150-375); Red Blood Count 3.56 M/mm3 (4.6-6.20); Red Cell Distribution Width 13.4 % (11.5-14.5); White Blood Count 5.8 K/mm3 (4.5-10.0)
[2024-03-23 11:01] LABS: Alanine Aminotransferase 20 U/L (6-50); Albumin Level 4.1 g/dL (3.5-5.1); Alkaline Phosphatase 68 U/L (38-126); Anion Gap 2 mmol/L (4-12); Aspartate Amino Transferase 25 U/L (17-59); Bilirubin,Total 0.5 mg/dL (0.2-1.3); Blood Urea Nitrogen 11 mg/dL (9-20); Calcium 8.8 mg/dL (8.4-10.2); Carbon Dioxide 31 mmol/L (22-30); Chloride 105 mmol/L (98-107); Cholesterol 183 mg/dL (0-200); Estimated Glomerular Filt Rate > 60; Glucose 104 mg/dL (65-110); HDL Direct 53 mg/dL; Potassium 4.1 mmol/L (3.4-5.0); Sodium 138 mmol/L (137-145); Triglycerides 73 mg/dL (<150)
[2024-03-23 11:13] LABS: LDL Cholesterol Direct 95 mg/dL
[2024-03-23 11:29] LABS: Prostate Specific Antigen 0.2 ng/mL (< OR = 4.0)
== END 2024-03-23 10:27 | disposition home or self-care (01) ==
LOC: ANHLAB 10:29
PROVIDERS: PCP Nurse Practitioner Family; Visit Provider Nurse Practitioner Family
DX: C61 Malignant neoplasm of prostate (principal); E78.5 Hyperlipidemia, unspecified; F41.9 Anxiety disorder, unspecified; R01.1 Cardiac murmur, unspecified; R97.20 Elevated prostate specific antigen [PSA]; Z00.00 Encounter for general adult medical examination without abnormal findings; Z72.0 Tobacco use
CPT/HCPCS: 36415; 80053; 80061; 84153; 85025

== ENCOUNTER 2024-04-02 12:41 | Outpatient (CLI) | payer MEDICARE, MEDICAID, SELFPAY ==
--- NOTE | ~2024-04-02 | CT_ITS ---
EXAMINATION:CT lung screening DATE: 04/02/2024 13:12 INDICATION: Personal history of nicotine dependence. Current smoker with 75 pack year history. TECHNIQUE: Computed tomography (CT) of the chest was performed without intravenous contrast. Automate d exposure control and iterative reconstruction technique were employed. The dose-length product (DLP ) was 129.89 mGy-cm. COMPARISON: Chest CT 07/28/2015 FINDINGS: There is mild emphysema. The lungs demonstrate mild atelectasis. No pleural effusion. The h eart size is normal. There are coronary artery calcifications. There are calcifications of the aortic valve. No pericardial effusion. There are cysts in the kidneys measuring up to 17 mm on the right. T here is mild thoracic spondylosis. IMPRESSION: 1. Lung-RADS category 1: Negative. Continue annual screening with noncontrast low-dose chest CT in 12 months. Reviewed, dictated and finalized at location A. RER'S AIDE IMPRESSION: 1. Lung-RADS category 1: Negative. Continue annual screening with noncontrast l ow-dose chest CT in 12 months.
--- NOTE | 2024-04-02 13:19 | ECHO_ITS ---
Patient Info Name: Sundeep Hurtado Age: 68 years : 1955 Gender: Male Ht: 72 in Wt: 197 lbs BSA: 2.14 m2 HR: 57 bpm BP: 147 / 77 mmHg Technical Quality: Good Exam Date: 04/02/2024 1:26 PM Exam Location: Echo Lab Patient Status: Outpatient Admit Date: 04/02/2024 Staff Ordering Physician: Gerardo Espinal DO Email Marketing Coordinator: Alvarado Fox RDCS Attending Provider: Gerardo Espinal DO Referring Physician: Teddy LARA; Exam Type: CA echo dop color flow w con Study Info Indications - NONRHEUMATIC AORTIC STENOSIS Complete two-dimensional, color flow and Doppler transthoracic echocardiogram is performed. Summary 1. Complete two-dimensional, color flow and Doppler transthoracic echocardiogram is performed. 2. Left ventricular chamber dimension is normal. 3. Left ventricular systolic function is normal, estimated at 65-70%. 4. There is moderate concentric increased left ventricular wall thickness. 5. The left ventricular diastolic function is abnormal. 6. E/e' 19 is elevated. 7. Left atrial chamber dimension is moderately enlarged. 8. There is severe aortic valve sclerosis. 9. There is severe aortic valve stenosis with a peak velocity of 462.34 cm/s, mean gradient of 54 mmHg, and aortic valve area of 0.86 cm2. 10. There is mild aortic valve regurgitation. 11. There is trace mitral valve regurgitation. 12. Dilated inferior vena cava with >50% collapse upon inspiration consistent with elevated right atrial pressure, 10 mmHg. Left Ventricle E/e' 19 is elevated. Left ventricular chamber dimension is normal. Left ventricular systolic function is normal, estimated at 65-70%. There is moderate concentric increased left ventricular wall thickness. The left ventricular diastolic function is abnormal. Right Ventricle Right ventricular systolic function is normal and with normal TAPSE 2.9 cm. Right ventricular chamber dimension is normal. Left Atria Left atrial chamber dimension is moderately enlarged. Right Atria Right atrial chamber dimension is normal. Aortic Valve The aortic valve is probable trileaflet. There is severe aortic valve sclerosis. There is severe aortic valve stenosis with a peak velocity of 462.34 cm/s, mean gradient of 54 mmHg, and aortic valve area of 0.86 cm2. There is mild aortic valve regurgitation. Pulmonic Valve There is no pulmonic regurgitation. Mitral Valve There is no mitral valve stenosis. There is trace mitral valve regurgitation. Tricuspid Valve There is no tricuspid valve regurgitation. Pericardium/Pleural There is no pericardial effusion. Inferior Vena Cava Dilated inferior vena cava with >50% collapse upon inspiration consistent with elevated right atrial pressure, 10 mmHg. Aorta The aortic root size at the sinus of Valsalva is normal. Left Ventricular Outflow Tract Name Value Normal LVOT 2D LVOT Diameter 2.05 cm LVOT Doppler LVOT Peak Gradient 4 mmHg LVOT Mean Gradient 3 mmHg LVOT VTI 32.94 cm LVOT VTI/AV VTI Ratio 0.26 LVOT Stroke Volume 108.25 ml LVOT CO 5.14 l/min LVOT CI 2.40 L/min/m2 Pulmonic Valve Name Value Normal RVOT Doppler RVOT Peak Gradient 2 mmHg PV Doppler PV Peak Gradient 2 mmHg Mitral Valve Name Value Normal MV Doppler MV Peak Gradient 8 mmHg MV Mean Gradient 2 mmHg MV Decel Taylor 668.36 cm/s2 MV PHT 0 s MV Area (PHT) 3.93 cm2 4.00-5.00 MV Area (Cont Eq VTI) 2.13 cm2 MV Diastolic Function MV E Peak Velocity 129.13 cm/s MV A Peak Velocity 106.61 cm/s MV E/A 1.21 MV Decel Time 0 s MV Annular TDI MV E/e' (Septal) 20.26 <=8.00 MV E/e' (Lateral) 18.67 <=8.00 MV E/e' (Average) 19.47 Tricuspid Valve Name Value Normal Estimated PAP/RSVP RA Pressure 10 mmHg <=5 Aorta Name Value Normal Ascending Aorta Ao Root Diameter (MM) 3.58 cm Ao Root Diam Index (MM) 1.67 cm/m2 Aortic Valve Name Value Normal AV Doppler AV Peak Velocity 462.34 cm/s AV Peak Gradient 86 mmHg AV Mean Gradient 54 mmHg AV VTI 125.87 cm AV Area (Cont Eq VTI) 0.86 cm2 >=3.00 AV Area (Cont Eq Ren) 0.73 cm2 AV Regurgitation 2D LVOT Area 3.29 cm2 Ventricles Name Value Normal LV Dimensions 2D/MM IVS Diastolic Thickness (2D) 1.54 cm 0.60-1.00 LVID Diastole (2D) 4.44 cm 4.20-5.80 LVIW Diastolic Thickness (2D) 1.39 cm 0.60-1.00 LVID Systole (2D) 2.79 cm 2.50-4.00 LVOT Diameter 2.05 cm LV Mass (2D Cubed) 260.59 g 88.00-224.00 LV Mass Index (2D Cubed) 0.01 g/cm2 0.00-0.01 Relative Wall Thickness (2D) 0.63 LV Fractional Shortening/Ejection Fraction 2D/MM LV Fractional Shortening (2D) 37 % 25-43 LV EF (2D Teicholz) 67 % 52-72 LV Diastolic Volume (4C MOD) 105.94 ml LV EF (4C MOD) 64 % LV Diastolic Volume (2C MOD) 122.13 ml LV EF (2C MOD) 73 % LV Diastolic Volume (BP MOD) 113.81 ml 62.00-150.00 LV Diastolic Volume Index (BP MOD) 0.05 l/m2 0.03-0.07 LV Systolic Volume (BP MOD) 35.73 ml 21.00-61.00 LV Systolic Volume Index (BP MOD) 0.02 l/m2 0.01-0.03 LV EF (BP MOD) 69 % 52-72 LV Diastolic Length (4C) 9.38 cm LV Systolic Length (4C) 7.90 cm LV Stroke Volume (4C MOD) 67.94 ml Atria Name Value Normal LA Dimensions LA Dimension (MM) 3.83 cm 3.00-4.10 LA Volume (4C A-L) 69.81 ml LA Volume (BP A-L) 83.51 ml RA Dimensions RA Area (4C) 19.19 cm2 <=18.00 Report Signatures
== END 2024-04-02 12:42 | disposition home or self-care (01) ==
PROVIDERS: PCP Nurse Practitioner Family; Visit Provider Internal Medicine Cardiovascular Disease
DX: Z12.2 Encounter for screening for malignant neoplasm of respiratory organs (principal); Z87.891 Personal history of nicotine dependence; I35.0 Nonrheumatic aortic (valve) stenosis; I36.1 Nonrheumatic tricuspid (valve) insufficiency; I35.1 Nonrheumatic aortic (valve) insufficiency; I34.0 Nonrheumatic mitral (valve) insufficiency
CPT/HCPCS: 71271; 93306; C8929

== ENCOUNTER 2024-09-21 12:10 | Outpatient (CLI) | payer MEDICARE, MEDICAID, SELFPAY ==
--- OUTSIDE RECORDS SUMMARY | 2024-09-21 12:14 | XMS_ITS | Clinical Summary ---
Author Organization [facility] [employer] Address [address] [place] [address] Care Team Providers Care Retail Field Representative Name Role Phone Unknown, Provider Primary Care Provider Unavaila ble Source Comments [facility] [employer],non-owned Affiliates and Associated Physician Practices is amultiple site organization consisting of ambulatory clinics and hospital sitesin [place], [place], [place]. This disclosure is being madepursuant to the Care Everywhere program and may not contain all information available regarding this patient. Last updated [employer] Allergies No known active allergies Medications * Be aware that medications may not be up to date on this document. Alwaysverify current medications with the patient. atorvastatin (LIPITOR) 40 MG tablet Take 1 (one) tablet by mouth once daily Active ALPRAZolam (XANAX) 0.5 MG tablet TAKE 1 TABLET BY MOUTH ONCE DAILY NEEDED FOR ANXIETY 1 Active fluticasone propionate (FLONASE) 50 MCG/ACT nasal spray 1 (one) spray once daily 2 Active albuterol HFA (Proventil; Ventolin; Proair) 108 (90 Base) MCG/ACT inhaler INHALE 2 PUFFS BY MOUTH 4 TIMES DAILY NEEDED FOR SHORTNESS OF BREATH OR WHEEZING 2 Active escitalopram (Lexapro) 10 MG tablet 3 Active mupirocin (Bactroban) 2 % ointment Apply to affected area 3 times daily Apply to hands 30 g 5 4 Active fluorouracil (Efudex) 5 % creamIndication s:Actinic keratosis APPLY CREAM TOPICALLY TO AFFECTED AREA TWICE DAILY FOR 6 WEEKS 40 g 4 Active tamsulosin (Flomax) 0.4 MG capsule TAKE 1 CAPSULE BY MOUTH ONCE DAILY AFTER A MEAL 30 capsule 5 Active Active Problems Problem Noted Date Diagnosed Date Melanocytic nevi of trunk 11/07/2019 Seborrheic keratoses 11/04/2019 Lentigines 11/04/2019 Prostate cancer Immunizations Immunization Administration Dates Next Due Covsuresh Cuponzote primary monoval ent 12+ yr 0.3mL Purple cap 08/07/2020,07/03/2020 INFLUENZA VACCINE 03/04/2019 Family History Medical History Relation Name Comments Cancer - Skin, Non Melanoma Mother Allergy (Severe) Neg Hx Asthma Neg Hx CVA Neg Hx Cancer Neg Hx Cancer - Breast Neg Hx Cancer - Other Neg Hx Cancer - Skin, Melanoma Neg Hx Eczema Neg Hx Hemophilia Neg Hx Psoriasis Neg Hx Rashes/Skin Problems Neg Hx Relation Name Status Comments Mother Social History Tobacco Use Types Packs/Day Years Used Date Smoking Tobacco: Every Day Cigarettes Smokeless Tobacco: Never Alcohol Use Standard Drinks/Week Comments Not Currently 0 (1 standard drink = 0.6 oz pur e alcohol) PHQ-2 Answer Date Recorded PHQ2 TOTAL SCORE 0 12/07/2020 Sex and Gender Information Value Date Recorded Sex Assigned at Not on file Legal Sex Male 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[employer]TER Gender Identity Not on file Sexual Orientation Not on file Last Filed Vital Signs Vital Sign Reading Time Taken Comments Blood Pressure 149/75 10/24/2022 11:47 AM CDT Pulse 66 10/24/2022 11:47 AM CDT Temperature 36.7 C (98.1 F) 10/24/2022 11:47 AM CDT Respiratory Rate 18 04/26/2022 10:45 AM ROTARY SHEAR CUTTER Oxygen Saturation 97% 10/24/2022 11:47 AM CDT Inhaled Oxygen Concentration - - Weight 82.2 kg (181 lb 3.2 oz) 10/24/2022 11:47 AM CDT Height 182.9 cm (6') 06/12/2021 10:13 AM ROTARY SHEAR CUTTER Body Mass Index 24.58 06/12/2021 10:13 AM ROTARY SHEAR CUTTER Plan of Treatment Health Maintenance Due Date Last Done Comments COLOGUARD (AGES 45-75) - COL ON CA SCREENING 1955 COLON MONITORING 1955 COLONOSCOPY - COLON CA SCREENING 1955 CT COLONOGRAPHY - COLON CA SCREENING 1955 Colorectal Cancer Screening 1955 FIT - COLON CA SCREENING 1955 FLEX SIG - COLON CA SCREENING 1955 HEPATITIS C SCREENING 06/20/1974 DTAP/TDAP/TD VACCINES (1 - Tdap) 06/25/1975 PNEUMOCOCCAL VACCINE 50+ (1 of 2 - PCV) 06/25/1975 ZOSTER VACCINE (1 of 2) 2006 AAA SCREENING 2021 COVID-19 VACCINE (3 - 2023-2 5 season) 2023 08/07/2020, 07/03/2020 DEPRESSION SCREENING 04/22/2024 MEDICARE AWV CALENDAR YEAR 2024 INFLUENZA VACCINE (Season Ended) 2024 03/04/2019 Respiratory Syncytial Virus (RSV) Vaccine Pt: or over 60 yrs (1 - 1-dose 75+ series) 06/25/2031 HEPATITIS B VACCINE Aged Out No longe r eligible based on patient's age to complete this topic HIB VACCINE Aged Out No longer eligi ble based on patient's age to complete this topic HPV VACCINE Aged Out No longer eligi ble based on patient's age to complete this topic MENINGOCOCCAL (Group B) VACCINE SHARED DECISION-MAKING Aged Out No longer eligible based on patient's age to complete this topic MENINGOCOCCAL GROUPS A/C/Y/W VACCINE Aged Out No longer eligible b ased on patient's age to complete this topic Medical Devices Implanted Type Area Tube Buffer Device Identifier Shelf Expiration Date Model / Serial / Lot Spcr Prost Spaceoar Rodrigo Ddrgl Rctm Ant R Implanted:Qty: 1 on 01/19/2021 at [facility] N/A: Peritoneum AppSurfer 04/20/2023 [id number] / / [id number] Description:spaceoar Insurance MEDICAID - OUT OF STATE MEDICAID - [place] MEDICARE AETNA MEDICARE ADV Care Teams Retail Field Representative Relationship Specialty Start Date End Date Unknown, Provider PCP - General 08/05/23
--- OUTSIDE RECORDS SUMMARY | 2024-09-21 12:14 | XMS_ITS ---
Author Organization [facility] Address [address] [place] [address] Care Team Providers Care Tafe Registrar Name Role Phone Unknown, Provider Primary Care Provider Unavaila ble Active Problems Problem Noted Date Diagnosed Date Melanocytic nevi of trunk 11/07/2019 Seborrheic keratoses 11/04/2019 Lentigines 11/04/2019 Prostate cancer Current Treatment and Therapy Plans No current plan information found. Past Treatment and Therapy Plans No past plan information found. Radiation Treatments * Course C1:Pros_SBRT 02/07/2021 - 02/17/2021 Treatment Period Energy Fraction Dose Fractions Total Dose Plans Planned #Prostate 02/07/2021 - 02/17/2021 5 / 5 4,000 cGy Reference Points Delivered CTV 02/07/2021 - 02/17/2021 4,000 cGy Lifetime Dose Tracking * Chemical Lifetime Dose Automatic Entry Manual Entr y Dose Length Product 349 mGy-cm 349 mGy-cm 0 mGy-cm
[2024-09-21 12:49] LABS: Basophils Absolute Auto 0.1 K/mm3 (0.0-0.1); Eosinophils Absolute Auto 0.3 K/mm3 (0-0.3); Eosinophils Percent Auto 4.8 % (0-4.4); Hematocrit 35.9 % (42.0-52.0); Hemoglobin 11.4 g/dL (14.0-18.0); Immature Granulocyte Absolute 0.01 K/mm3 (0.00-0.031); Immature Granulocyte Percent A 0.2 % (0-0.5); Lymphocytes Absolute Auto 1.33 K/mm3 (0.9-3.2); Lymphocytes Percent Auto 22.9 % (18.3-44.2); Mean Corpuscular HGB Conc 31.8 g/dl (32-36); Mean Corpuscular Hemoglobin 30.8 pg (26-34); Monocytes Absolute Auto 0.8 K/mm3 (0.1-0.6); Monocytes Percent Auto 14.1 % (2.6-8.5); Neutrophils Absolute Auto 3.3 K/mm3 (1.3-6.7); Platelet Count Result 222 k/mm3 (150-375); Red Cell Distribution Width 13.9 % (11.5-14.5); White Blood Count 5.8 K/mm3 (4.5-10.0)
[2024-09-21 13:15] LABS: Alanine Aminotransferase 25 U/L (6-50); Albumin Level 3.9 g/dL (3.5-5.1); Alkaline Phosphatase 57 U/L (38-126); Anion Gap 5 mmol/L (4-12); Aspartate Amino Transferase 37 U/L (17-59); Bilirubin,Total 0.2 mg/dL (0.2-1.3); Blood Urea Nitrogen 15 mg/dL (9-20); Calcium 9.1 mg/dL (8.4-10.2); Carbon Dioxide 26 mmol/L (22-30); Chloride 106 mmol/L (98-107); Cholesterol 145 mg/dL (0-200); Estimated Glomerular Filt Rate > 60; Glucose 92 mg/dL (65-110); HDL Direct 53 mg/dL; Potassium 4.2 mmol/L (3.4-5.0); Sodium 137 mmol/L (137-145); Triglycerides 152 mg/dL (<150)
[2024-09-21 13:25] LABS: LDL Cholesterol Direct 64 mg/dL
[2024-09-21 14:38] LABS: Prostate Specific Antigen 0.3 ng/mL (< OR = 4.0)
== END 2024-09-21 12:11 | disposition home or self-care (01) ==
PROVIDERS: PCP Nurse Practitioner Family; Visit Provider Nurse Practitioner Family
DX: E78.5 Hyperlipidemia, unspecified (principal); F41.9 Anxiety disorder, unspecified; Z00.00 Encounter for general adult medical examination without abnormal findings; R01.1 Cardiac murmur, unspecified; C61 Malignant neoplasm of prostate; Z12.5 Encounter for screening for malignant neoplasm of prostate
CPT/HCPCS: 36415; 80053; 80061; 84153; 85025; G0103